=== PATIENT | female | born 1985 | race Caucasian/White ===

== ENCOUNTER 2018-04-29 14:46 | Emergency (ER) | payer BC ==
--- NOTE | 2018-04-29 14:59 | EDM.PDOC ---
ED HPI GENERAL MEDICAL PROBLEM - General Chief Complaint: Respiratory Problem Stated Complaint: POSS. INFLUENZA Time Seen by Provider: 04/29/18 14:56 Source of Information: Reports: Patient History Limitations: Reports: No Limitations - History of Present Illness INITIAL COMMENTS - FREE TEXT/NARRATIVE: 32-year-old female presents to the ED for evaluation of possible influenza. 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 [id number] so has come down with similar type illness and was seen in the clinic but not tested as he was felt to be outside of the treatment timeframe. She is developed symptoms on 2 days ago with headache cough and generalized myalgia. Appetite is quite poor as well. He did have a flu shot. She states she is pretty rattly in her chest and had some concerns about whether she was tiffany pneumonia. Onset: Sudden Onset Date: 04/27/18 Duration: Hour(s):, Getting Worse (About 45 hours from the time she started to have symptoms.) Location: Reports: Chest, Generalized (Generalized myalgia), Other (Mild headache poor appetite) Quality: Reports: Other (Generalized myalgia with body aches bone aches.) Severity: Moderate Improves with: Reports: None Worsens with: Reports: None Context: Reports: Sick Contact (One of her daycare children age 2 was positive for influenza A last week Tuesday.). Denies: Activity, Exercise, Lifting Associated Symptoms: Reports: Chest Pain, cough w sputum, Headaches, Loss of Appetite, Malaise (Occasional sputum production). 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: Reports: Other (see below) (None.) Generalized Pain Score (Numeric/FACES): 8 - Related Data Allergies Allergy/AdvReac Type Severity Reaction Status Date / Time adhesive tape Allergy Hives Verified 04/29/18 15:01 codeine Allergy Itching Verified 04/29/18 15:01 latex Allergy Hives Verified 04/29/18 15:01 Home Meds: Home Meds Hydrocodone/Chlorphen P-Stirex [Tussionex Pennkinetic Susp] 5 ml PO Q12H PRN # 60 ml 04/29/18 [Rx] Oseltamivir [Tamiflu] 75 mg PO BID #10 cap 04/29/18 [Rx] Past Medical History - Past Surgical History HEENT Surgical History: Reports: Other (See Below) (12 teeth extracted to make room in her mouth for her teeth and then basis for 2 years. All of her wisdom teeth have been resected as well) Female Surgical History: Reports: Section (1) Social & Family History - Living Situation & Occupation Living situation: Reports: Occupation: Employed ED ROS GENERAL - Review of Systems Review Of Systems: See Below Constitutional: Reports: Fever, Chills, Malaise, Weakness, Fatigue, Decreased Appetite HEENT: Reports: Ear Pain, Throat Pain (Mild) Respiratory: Reports: Cough ( more from coughing.) Cardiovascular: Reports: No Symptoms ( paroxysmal intermittent cough ) Endocrine: Reports: No Symptoms GI/Abdominal: Reports: Decreased Appetite : Reports: No Symptoms Musculoskeletal: Reports: Other Skin: Reports: No Symptoms (Generalized myalgia.) Neurological: Reports: Dizziness, Headache, Weakness Psychiatric: Reports: No Symptoms Hematologic/Lymphatic: Reports: No Symptoms (Sense of weakness) Immunologic: Reports: No Symptoms ED EXAM, GENERAL - Physical Exam Exam: See Below Exam Limited By: No Limitations General Appearance: Alert, WD/WN, No Apparent Distress, Other (Mildly warm to palpation. Temperatures 38.0 according to nurses recording) Eye Exam: Bilateral Eye: Normal Inspection Ears: Normal TMs Ear Exam: Right Ear: TM Dull Head: Other Neck: Normal Inspection, Supple (Posterior oropharynx appears to be quite inflamed more from coughing that infection.), Non-Tender, Full Range of Motion. No: Lymphadenopathy (L), Lymphadenopathy (R) Respiratory/Chest: No Respiratory Distress, Lungs Clear, Normal Breath Sounds, No Accessory Muscle Use, Other (Productive sounding cough however at times.) Cardiovascular: Normal Peripheral Pulses, Regular Rate, Rhythm, No Edema, No Gallop, No Murmur, No Rub Peripheral Pulses: 3+: Posterior Tibial (L), Posterior Tibial (R), Dorsalis Pedis (L), Dorsalis Pedis (R) GI/Abdominal: Normal Bowel Sounds, Soft, Non-Tender, No Organomegaly, No Abnormal Bruit, No Mass, Pelvis Stable Back Exam: Normal Inspection, Full Range of Motion. No: CVA Tenderness (L), CVA Tenderness (R) Extremities: Normal Inspection, Normal Range of Motion, Non-Tender, No Pedal Edema Neurological: Oriented, CN II-XII Intact, Normal Cognition Psychiatric: Normal Affect, Normal Mood Skin Exam: Warm, Dry, Intact, Normal Color, No Rash Course - Vital Signs Last Recorded V/S: Last Vital Signs Temp 38.0 C 04/29/18 14:53 Pulse 95 04/29/18 14:53 Resp 20 04/29/18 14:53 BP 131/89 04/29/18 14:53 Pulse Ox 98 04/29/18 14:53 - Orders/Labs/Meds Meds: Medications Discontinued Medications Generic Name Dose Route Start Last Admin Trade Name Heena PRN Reason Stop Dose Admin Acetaminophen 975 mg 04/29/18 15:33 04/29/18 15:39 Tylenol PO 04/29/18 15:34 975 mg NOW ONE Administration Dextrose/Sodium Chloride 1,000 mls @ 999 mls/hr 04/29/18 15:30 04/29/18 15:36 Dextrose 5%-Normal Saline IV 999 mls/hr ASDIRECTED KEMAR Administration Ketorolac Tromethamine 30 mg 04/29/18 15:45 04/29/18 15:40 Toradol IVPUSH 30 mg ONETIME KEMAR Administration - Radiology Interpretation Free Text/Narrative:: 32-year-old female presents the ED with acute onset of fever low-grade headache paroxysmal reductive cough and generalized myalgia. 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 [id number]-old is also sick and was taken at the clinic and advised that clinically he has influenza as well and treated conservatively. She started to develop symptoms less than 48 hours ago and she did have a flu shot. Clinically she has signs and symptoms of influenza as well. She is requesting IV fluids and therefore she will receive D5 normal saline at open. Will provide with Toradol 30 mg IV for generalized myalgia and Tylenol 975 mg by mouth for fever of 38. Influenza screen will be done. - Re-Assessments/Exams Free Text/Narrative Re-Assessment/Exam: 04/29/18 15:36 screen is positive for influenza type A 04/29/18 14:45: Patient has finished IV fluids. She'll be discharged on Tamiflu 75 mg twice a day for the next 5 days. Also written a prescription for Tussionex cough syrup 5 mils every 12 hours. For cough relief. She'll continue Motrin 600 mg every 6 hours needed for headache and body ache and fever relief. Is still expect improvement over the X 48 hours. She was advised she is contagious to others through cough drop it's for a week from the time she develops symptoms. Departure - Departure Time of Disposition: 16:52 Disposition: Home, Self-Care 01 Condition: Fair Clinical Impression: Influenza, Influenza A - Discharge Information *PRESCRIPTION DRUG MONITORING PROGRAM REVIEWED*: Not Applicable *COPY OF PRESCRIPTION DRUG MONITORING REPORT IN PATIENT MOLLY: Not Applicable Prescriptions: Hydrocodone/Chlorphen P-Stirex [Tussionex Pennkinetic Susp] 5 ml PO Q12H PRN # 60 ml PRN Reason: Cough relief Oseltamivir [Tamiflu] 75 mg PO BID #10 cap Instructions: Influenza, Adult Referrals: PCP,Not In Area [Primary Care Provider] - Forms: ED Department Discharge, ED Return to Work/School Form Additional Instructions: Evaluation the emergency room today in regards to development of generalized myalgia poor appetite and poor harsh paroxysmal cough and low-grade headache known exposure to influenza type A with one of your 2-year-olds in your daycare facility proving positive last week. Your youngster is also ill and likely has influenza clinically. Screening for influenza A was positive in the hospital today. He received intravenous fluids for rehydration and Toradol 30 mg IV for generalized aches and pains and headache relief. Tylenol 975 mg for fever relief. 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 Continue ibuprofen/Motrin 600 mg every 6 hours as needed for fever relief and body/ headache relief. I did write a prescription for Tussionex cough syrup which is fairly prolonged. 5 mils every 12 hours as necessary for cough relief with a little bit of fluid in your stomach. Take it a good hour before planning going to bed as takes about an hour to work to suppress cough to allow sleep. Of note your considered contagious to others via cough for up to week from the time he first developed symptoms.
[2018-04-29] MEDS ORDERED: Dextrose 5%-0.9% NaCl 1,000 ML IV SCH (15:30)
[2018-04-29] MEDS ORDERED: Acetaminophen 325 MG Tab PO ONE (15:33)
[2018-04-29] MEDS ORDERED: Ketorolac 30 MG/ML SDV IVPUSH SCH (15:45)
== END 2018-04-29 16:59 | disposition home or self-care (01) ==
LOC: JD.ED 14:46
DX: J10.1 Influenza due to other identified influenza virus with other respiratory manifestations (principal); Z91.040 Latex allergy status; Z91.048 Other nonmedicinal substance allergy status; Z88.5 Allergy status to narcotic agent
CPT/HCPCS: 87804; 96361; 96374; 99283; A9270; J1885; J7042; 99284